=== PATIENT | male | born 1975 | race Caucasian/White ===

== ENCOUNTER → 2016-10-06 | Outpatient (CLI) | payer MEDICARE ==
[~2016-10-06] MED LIST: ALLEGRA ALLERG180 MG PO; ASPIRIN EC81 MG PO; BACTROBAN22 GM TOP; KLONOPIN TAB 00.5 MG PO; LEVSIN TAB 00.125 MG SL; LIPITOR TAB 2020 MG PO; NEURONTIN 300300 MG PO; PAXIL30 MG PO; PROTONIX40 MG PO; VISTARIL25 MG PO; VITAMIN D2000 UNI1 PO
== END ==
LOC: EMI 11:00
DX: R51 Headache (principal); R42 Dizziness and giddiness; H54.7 Unspecified visual loss
CPT/HCPCS: 70553; A9577; J7050